=== PATIENT | female | born 1950 | race Caucasian/White ===

== ENCOUNTER → 2017-02-03 | Outpatient (CLI) | payer MEDICARE, BC ==
--- NOTE | 2017-02-03 12:19 | RAD ---
Indication left hip pain for several weeks. No history of trauma. An AP view of the pelvis was obtained as well as a frog leg view of the left hip. No bony abnormality is seen. Significant degenerative changes are not apparent on plain films.
== END | disposition home or self-care (01) ==
LOC: DXRADRC 11:02
PROVIDERS: ATTEND Physician Assistant Medical
DX: M25.552 Pain in left hip (principal)
CPT/HCPCS: 73501

== ENCOUNTER 2019-07-31 00:38 | Emergency (ER) | payer MEDICARE ==
[~2019-07-31] VITALS: Ht 157.5 cm; Wt 54.0 kg
[2019-07-31 00:51] VITALS: BP 148/71
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
[2019-07-31] MEDS ORDERED: DIPHTH,PERTUSS(ACELL),TET TOX 0.5 ML DISP.SYRIN. VAX IM ONE (01:15)
[2019-07-31] MEDS ORDERED: LIDOCAINE 4% KIT 4 ML SOLUTION. TP ONE (01:30)
[2019-07-31] MEDS ORDERED: LIDOCAINE 5% TOPICAL OINTMENT 35GM TUBE. TP ONE (01:45)
--- NOTE | 2019-07-31 01:47 | RAD ---
PQRS Compliance statement: One or more of the following individualized dose reduction techniques were utilized for this examination: 1. Automated exposure control. 2. Adjustment of the mA and/or kV according to patient size. 3. Use of iterative reconstruction technique. Indication:Fall. TECHNIQUE: CT head without IV contrast COMPARISON:None FINDINGS: No pathologic extra-axial or intra-axial fluid collection. The ventricles and basal cisterns are within normal limits. No acute intracranial bleed. Orbits are within normal limits. Left posterior parietal deep scalp laceration with small hematoma. No acute calvarial fractures. Visualized paranasal sinuses and mastoid air cells are clear. IMPRESSION: Deep laceration in the left posterior parietal scalp. No acute calvarial fractures or intracranial bleed. Indication:Fall. TECHNIQUE: CT of the cervical spine without IV contrast with multiplanar reformats. COMPARISON:None FINDINGS: Significant motion artifact is seen limiting optimal evaluation. Atlantoaxial joint interval is preserved. No apparent compression deformities. Facet joints are in normal anatomic alignment. No apparent acute fractures. Large anterior bridging osteophytes are seen at C4-C5, C5-C6 and C6-C7. Visualized noncontrast sections through the neck soft tissue are within normal limits. Clear lung apices. IMPRESSION: Motion artifact limiting optimal evaluation. No apparent high-grade compression deformities or fractures. Electronically signed by: Michael Solano DO (07/31/2019 1:44 AM) [id number]
== END 2019-07-31 02:30 | disposition home or self-care (01) ==
LOC: ER 00:38
DX: S01.01XA Laceration without foreign body of scalp, initial encounter (principal); F10.229 Alcohol dependence with intoxication, unspecified; W22.03XA Walked into furniture, initial encounter; Y93.89 Activity, other specified; Y92.89 Other specified places as the place of occurrence of the external cause; Y99.8 Other external cause status; Y90.9 Presence of alcohol in blood, level not specified
CPT/HCPCS: 12004; 70450; 72125; 90471; 90715; 99284-25

== ENCOUNTER 2019-08-08 08:27 | Emergency (ER) | payer MEDICARE ==
[~2019-08-08] VITALS: Ht 157.5 cm; Wt 54.0 kg
--- NOTE | 2019-08-08 08:56 | PHYS DOC ---
Past History Past Medical History: No Pertinent History Past Surgical History: Hysterectomy Smoking: Non-smoker Alcohol Use: Heavy Drug Use: None Adult General Chief Complaint Chief Complaint: SUTURE/STAPLE REMOVAL [facility] Patient is a 68-year-old female who presents for staple removal after having laceration to scalp repaired on 08/30. Patient indicates that she has not had any problems and denies fever. She denies any headache.[] Review of Systems Review of Systems Constitutional: Denies fever or chills [] Respiratory: Denies cough or shortness of breath [] Cardiovascular: No additional information not addressed in HPI [] Integument: Denies rash or skin lesions [] Neurologic: Denies headache, focal weakness or sensory changes [] Allergies Allergies Allergies Coded Allergies Type Severity Reaction Last Updated Verified Unable to Assess 07/31/19 No Physical Exam Physical Exam Constitutional: Well developed, well nourished, no acute distress, non-toxic appearance. [] HENT: Normocephalic, total of 16 robel are noted within the laceration of scalp with appearance of good healing. No signs of infection noted.. [] Eyes: PERRLA, EOMI, conjunctiva normal, no discharge. [] Lungs & Thorax: No respiratory distress[] Skin: Warm, dry, no erythema, no rash. [] Neurologic: Alert and oriented X 3. [] Current Patient Data Vital Signs Vital Signs Date Time Temp Pulse Resp B/P (MAP) Pulse Ox O2 Delivery O2 Flow Rate FiO2 08/08/19 08:30 98.2 84 18 94 Room Air EKG EKG [] Radiology/Procedures Radiology/Procedures [] Course & Med Decision Making Course & Med Decision Making Pertinent Labs and Imaging studies reviewed. (See chart for details) After wound evaluated, a total of 16 robel were removed utilizing staple removal device. Patient tolerated well. Dragon Disclaimer Dragon Disclaimer This electronic medical record was generated, in whole or in part, using a voice recognition dictation system. Departure Departure: Impression: Primary Impression: Encounter for staple removal Disposition: 01 HOME, SELF-CARE Condition: STABLE Referrals: CANDICE STOVALL (PCP) Patient Instructions: Staple Care and Removal, Staple Removal, Care After ALEJANDRA HAJI Jr. DO Aug 08, 2019 08:56
[2019-08-08 09:00] VITALS: BP 137/90
== END 2019-08-08 09:01 | disposition home or self-care (01) ==
LOC: ER 08:27
DX: S01.01XD Laceration without foreign body of scalp, subsequent encounter (principal); F10.20 Alcohol dependence, uncomplicated; X58.XXXD Exposure to other specified factors, subsequent encounter; Y90.9 Presence of alcohol in blood, level not specified
CPT/HCPCS: 99284

== ENCOUNTER → 2022-01-15 | Outpatient (CLI) | payer MEDICARE ==
--- NOTE | 2022-01-15 14:21 | RAD ---
XR CHEST 2V INDICATION: COUGH, COPD . COMPARISON STUDY: 01/15/2016. FINDINGS: Lungs: Hyperexpanded lung volume. No pulmonary mass or consolidation. The tracheobronchial tree and h ilar structures are normal. Pleura: No pleural effusion or pneumothorax. Heart and Mediastinum: The cardiomediastinal silhouette is normal. Atherosclerosis of the thoracic ao rta. Bones and Soft Tissues: Degenerative changes of the spine. IMPRESSION: No acute cardiopulmonary process. Electronically signed by: Jamie Wallis MD (01/15/2022 2:19 PM) [id number]
== END ==
LOC: RAD 10:45
PROVIDERS: ATTEND Physician Assistant Medical
DX: J44.9 Chronic obstructive pulmonary disease, unspecified (principal); I70.0 Atherosclerosis of aorta; M47.814 Spondylosis without myelopathy or radiculopathy, thoracic region; Z78.0 Asymptomatic menopausal state
CPT/HCPCS: 71046

== ENCOUNTER → 2022-02-11 | Outpatient (CLI) | payer MEDICARE ==
--- NOTE | 2022-02-11 15:11 | RAD ---
Digital bilateral screening mammogram with tomography dated 02/11/2022. INDICATION: 71 years of age asymptomatic female patient presents for screening mammography. Screening TECHNIQUE: Full field craniocaudal and mediolateral oblique images of both breasts were obtained usi ng digital technique with tomosynthesis and also analyzed with computer-aided detection software. . COMPARISON: None available .. BREAST COMPOSITION: Category B: There are scattered fibroglandular densities. FINDINGS: No suspicious mass or clustered microcalcification. The peripheral pattern is stable. No architectura l distortion. IMPRESSION: No mammographic evidence of malignancy. RECOMMENDATION: Annual screening mammography is recommended, unless clinically indicated sooner based on symptoms or change in physical exam. BIRADS 1: NEGATIVE This study was interpreted with the benefit of Computerized Aided Detection (CAD). Recommend routine screening in one year. Patient information is entered into the reminder system with a target due date for the next screening mammogram. Mammography is the most sensitive method for finding small breast cancers, but it does not detect the m all and is not a substitute for careful clinical examination. A negative mammogram does not negate a clinically suspicious finding and should not result in delay in biopsying a clinically suspicious a bnormality. "Our facility is accredited by the [employer] Mammography Program." Electronically signed by: Law Turner MD (02/11/2022 3:09 PM) [id number]
--- NOTE | 2022-02-11 15:21 | RAD ---
INDICATION: Screening for osteopenia/osteoporosis. Reason: post menopausal / Spl. Instructions: / H istory: COMPARISON: None. TECHNIQUE: Bone densitometry was performed through the lumbar spine and proximal femur. IMPRESSION: Lumbar Spine: BMD: 1.03 T-Score: -1.3 Range: Osteopenic Proximal Femur: BMD: 0.67 T-Score: -2.3 Range: On the border between osteopenia and osteoporosis. World Health Organization Criteria for Bone Density: T-Score: > -1.0: Normal Range < -1.0 to -2.5: Osteopenic Range < -2.5: Osteoporotic Range Electronically signed by: Amado Gonzales MD (02/11/2022 3:18 PM) [id number]
== END ==
LOC: MAMMO 13:57
PROVIDERS: ATTEND Physician Assistant Medical
DX: Z12.31 Encounter for screening mammogram for malignant neoplasm of breast (principal); M85.89 Other specified disorders of bone density and structure, multiple sites; M81.0 Age-related osteoporosis without current pathological fracture; Z78.0 Asymptomatic menopausal state; E55.9 Vitamin D deficiency, unspecified
CPT/HCPCS: 77063; 77067; 77080